=== PATIENT | female | born 1935 | race African-American/Black ===

== ENCOUNTER 2021-05-10 23:15 | Inpatient (IN) | payer MEDICARE ==
[2021-05-10] MEDS ORDERED: hydrALAZINE 20 MG/ML VIAL SLOW IVP PRN (23:28)
[2021-05-10] MEDS ORDERED: traMADol HCl 50 MG TAB PO PRN (23:28)
[2021-05-10] MEDS ORDERED: Morphine 2 MG/ML VIAL SLOW IVP PRN (23:28)
[2021-05-10] MEDS ORDERED: HumaLOG 300 UNITS/3 ML VIAL SC PRN (23:31)
[2021-05-10] MEDS ORDERED: Dextrose 50% Abboject 50 ML SYRINGE SLOW IVP PRN (23:31)
[2021-05-10] MEDS ORDERED: Ondansetron PF 4 MG/2 ML Vial IVP PRN (23:31)
[2021-05-10] MEDS ORDERED: Dextrose 5% in Water 1,000 ML IV PRN (23:31)
[2021-05-10] MEDS ORDERED: Sodium Chloride 0.9% 1,000 ML IV SCH (23:45)
[2021-05-11] MEDS: traMADol HCl 50 MG TAB PO SCH ×4 (00:06→17:57)
[2021-05-11] MEDS: Acetaminophen 325 MG TAB PO SCH ×4 (00:12→17:57)
[2021-05-11 07:06] LABS: INR-International Normal Ratio 1.1; Prothrombin Time 14.3 sec (12.0-14.7)
[2021-05-11 07:07] LABS: PTT 40.9 sec (22.9-36.1)
[2021-05-11 07:16] LABS: Anion Gap 10 mmol/L (10-20); BUN (Urea Nitrogen) 13 mg/dL (9.8-20.1); CK (CPK) 308 U/L (29-168); Calc. Creatinine Clearance 39 mL/min (70-130); Calcium 9.1 mg/dL (7.8-10.44); Carbon Dioxide 29 mmol/L (23-31); Chloride 105 mmol/L (98-107); Glucose 99 mg/dL (83-110); Hemoglobin 11.9 g/dL (12.0-16.0); Mean Corpuscular HGB CONC 34.6 g/dL (32.0-36.0); Mean Corpuscular Hemoglobin 36.9 pg (27.0-31.0); Mean Platelet Volume 5.9 fL (7.4-10.4); Phosphorus 3.7 mg/dL (2.3-4.7); Platelet Count 245 thou/uL (130-400); Potassium 3.9 mmol/L (3.5-5.1); RBC Distribution Width 10.5 % (11.5-14.5); Red Blood Cell (RBC) Count 3.21 mill/uL (4.20-5.40); Sodium 140 mmol/L (136-145)
[2021-05-11] MEDS: Senokot S 8.6-50 MG TAB PO SCH ×2 (09:24→19:44)
[2021-05-11] MEDS: Amlodipine 10 MG TAB PO SCH (09:24)
[2021-05-11] MEDS: Famotidine/PF 20 mg/2ml Vial SLOW IVP SCH ×2 (09:24→19:45)
[2021-05-11 10:15] LABS: #Basophils 0.1 thou/uL (0.0-0.2); #Eosinphils 0.2 thou/uL (0.0-0.7); #Lymphocytes 1.8 thou/uL (1.20-3.40); #Monocytes 0.6 thou/uL (0.11-0.59); #Neutrophils 2.4 thou/uL (1.40-6.50); %Basophils 1.1 % (0.0-1.0); %Lymphocytes 35.7 % (21.0-51.0); %Monocytes 11.7 % (0.0-10.0); %Neutrophils 48.6 % (42.0-75.0); Eosinophils 1 % (0-10); Lymphocytes 35 % (21-51); MDiff Complete? YES; Macrocytosis SLIGHT = 6-15 cells (100X) (0-5/hpf); Monocytes 16 % (0-10); Neutrophil 47 % (42-75); Platelet Morphology Comment Appears Adequate
[2021-05-11 11:33] LABS: Troponin I 0.018 ng/mL (< 0.028)
[2021-05-11] MEDS ORDERED: Aspirin 81 mg Enteric Coated Tablet PO SCH (15:30)
[2021-05-11] MEDS: Sodium Chloride 0.9% 1,000 ML IV SCH (18:20)
[2021-05-11] MEDS: Lisinopril 5 MG TAB PO SCH (19:44)
[2021-05-12] MEDS: traMADol HCl 50 MG TAB PO SCH ×4 (00:01→18:14)
[2021-05-12] MEDS: Sodium Chloride 0.9% 1,000 ML IV SCH ×2 (03:03→14:19)
[2021-05-12] MEDS: Acetaminophen 325 MG TAB PO SCH ×4 (05:59→18:14)
[2021-05-12] MEDS ORDERED: ceFAZolin Sodium/D5W 2 GM in Premix Bag 1 BAG IVPB SCH (08:00)
[2021-05-12] MEDS: Amlodipine 10 MG TAB PO SCH (10:16)
[2021-05-12] MEDS: Lisinopril 5 MG TAB PO SCH ×2 (10:16→21:06)
[2021-05-12] MEDS: Senokot S 8.6-50 MG TAB PO SCH ×2 (13:05→21:06)
[2021-05-12] MEDS: Aspirin 81 mg Enteric Coated Tablet PO SCH (13:05)
[2021-05-12 13:39] LABS: SARS-CoV-2 NAA Rapid Test Not Detected (NotDetected)
[2021-05-12] MEDS ORDERED: ceFAZolin 2 GM/DEX 5% 100 ML BAG ONE (15:07)
[2021-05-12] MEDS ORDERED: Morphine 2 MG/ML VIAL ONE (15:22)
[2021-05-12] MEDS ORDERED: Lidocaine 2% Jelly 5 ML TUBE ONE (15:40)
[2021-05-12] MEDS ORDERED: Fentanyl 100 MCG/2 ML VIAL ONE (15:40)
[2021-05-12] MEDS ORDERED: Phenylephrine 10 MG/ML VIAL ONE (15:51)
[2021-05-12] MEDS ORDERED: Rocuronium Bromide 10 MG/ML (10ML VIAL) ONE (15:58)
[2021-05-12] MEDS ORDERED: PHENYLEPHRINE-NS 100 MCG/ML 10 ML SYRINGE ONE (15:58)
[2021-05-12] MEDS ORDERED: Lidocaine 1% PF 5 ML VIAL ONE (15:58)
[2021-05-12] MEDS ORDERED: Dexamethasone 20 MG/5 ML VIAL ONE (15:58)
[2021-05-12] MEDS ORDERED: Ondansetron PF 4 MG/2 ML Vial ONE (15:58)
[2021-05-12] MEDS ORDERED: PROPOFOL 200 MG/20 ML VIAL ONE (15:58)
[2021-05-12] MEDS ORDERED: SUGAMMADEX SODIUM 200 MG/2 ML VIAL ONE (17:05)
[2021-05-12] MEDS ORDERED: Ondansetron HCl/PF 4 MG/2 ML Vial IVP PRN (17:15)
[2021-05-12] MEDS ORDERED: PACU-Morphine 4MG/ML VIAL SLOW IVP PRN (17:15)
[2021-05-12] MEDS ORDERED: Promethazine HCl 25 MG/ML VIAL IM PRN (17:15)
[2021-05-12] MEDS ORDERED: Promethazine HCl 25 MG/ML VIAL IVPB PRN (17:15)
[2021-05-12] MEDS: Famotidine/PF 20 mg/2ml Vial SLOW IVP SCH (21:10)
[2021-05-13] MEDS: ceFAZolin Sodium/D5W 2 GM in Premix Bag 1 BAG IVPB SCH ×2 (00:45→08:32)
[2021-05-13] MEDS: traMADol HCl 50 MG TAB PO SCH ×4 (01:01→18:34)
[2021-05-13] MEDS: Acetaminophen 325 MG TAB PO SCH ×4 (01:02→18:29)
[2021-05-13 08:30] LABS: #Lymphocytes 1.5 thou/uL (1.20-3.40); #Monocytes 0.8 thou/uL (0.11-0.59); #Neutrophils 6.6 thou/uL (1.40-6.50); %Basophils 0.1 % (0.0-1.0); %Eosinophils 0.1 % (0.0-10.0); %Lymphocytes 17.1 % (21.0-51.0); %Monocytes 9.1 % (0.0-10.0); %Neutrophils 73.6 % (42.0-75.0); Hemoglobin 12.8 g/dL (12.0-16.0); Mean Corpuscular HGB CONC 32.8 g/dL (32.0-36.0); Mean Corpuscular Hemoglobin 34.5 pg (27.0-31.0); Mean Platelet Volume 5.8 fL (7.4-10.4); Platelet Count 309 thou/uL (130-400); RBC Distribution Width 10.4 % (11.5-14.5); Red Blood Cell (RBC) Count 3.71 mill/uL (4.20-5.40)
[2021-05-13] MEDS: Amlodipine 10 MG TAB PO SCH (08:30)
[2021-05-13] MEDS: Lisinopril 5 MG TAB PO SCH ×2 (08:30→21:50)
[2021-05-13] MEDS: Aspirin 81 mg Enteric Coated Tablet PO SCH (08:31)
[2021-05-13] MEDS: Senokot S 8.6-50 MG TAB PO SCH ×2 (08:32→21:47)
[2021-05-13 08:41] LABS: Troponin I 0.025 ng/mL (< 0.028)
[2021-05-13 08:42] LABS: Anion Gap 13 mmol/L (10-20); BUN (Urea Nitrogen) 12 mg/dL (9.8-20.1); CK (CPK) 448 U/L (29-168); Calc. Creatinine Clearance 39 mL/min (70-130); Calcium 9.5 mg/dL (7.8-10.44); Carbon Dioxide 27 mmol/L (23-31); Chloride 99 mmol/L (98-107); Glucose 106 mg/dL (83-110); Magnesium 1.7 mg/dL (1.6-2.6); Phosphorus 3.5 mg/dL (2.3-4.7); Potassium 3.8 mmol/L (3.5-5.1); Sodium 135 mmol/L (136-145)
[2021-05-13] MEDS ORDERED: Magnesium 2 GM/50 ML 2 GM in Premix Bag 1 BAG IVPB SCH (09:30)
[2021-05-13] MEDS ORDERED: Lactated Ringer's 250 ML IV SCH (15:45)
[2021-05-13] MEDS: Famotidine/PF 20 mg/2ml Vial SLOW IVP SCH (21:48)
[2021-05-13] MEDS ORDERED: Famotidine 20 MG TAB PO SCH (22:00)
[2021-05-14] MEDS: Acetaminophen 325 MG TAB PO SCH ×4 (00:16→18:16)
[2021-05-14] MEDS: traMADol HCl 50 MG TAB PO SCH ×4 (00:16→18:16)
[2021-05-14 07:09] LABS: Anion Gap 14 mmol/L (10-20); BUN (Urea Nitrogen) 23 mg/dL (9.8-20.1); Calc. Creatinine Clearance 35 mL/min (70-130); Calcium 8.8 mg/dL (7.8-10.44); Carbon Dioxide 27 mmol/L (23-31); Chloride 100 mmol/L (98-107); Glucose 97 mg/dL (83-110); Phosphorus 2.9 mg/dL (2.3-4.7); Sodium 137 mmol/L (136-145)
[2021-05-14] MEDS: Senokot S 8.6-50 MG TAB PO SCH ×2 (08:31→20:11)
[2021-05-14] MEDS: Aspirin 81 mg Enteric Coated Tablet PO SCH (08:31)
[2021-05-14] MEDS: Amlodipine 10 MG TAB PO SCH (08:32)
[2021-05-14] MEDS: Lisinopril 5 MG TAB PO SCH ×2 (08:32→20:10)
[2021-05-14] MEDS ORDERED: Famotidine 20 MG TAB PO SCH (21:00)
[2021-05-14] MEDS ORDERED: FLU VACC QS2021-22(65YR UP)/PF 240 MCG/0.7 ML SYRINGE IM ONE (21:00)
[2021-05-15] MEDS: Acetaminophen 325 MG TAB PO SCH ×4 (00:12→17:27)
[2021-05-15] MEDS: traMADol HCl 50 MG TAB PO SCH ×4 (00:13→17:27)
[2021-05-15 06:40] LABS: #Eosinphils 0.2 thou/uL (0.0-0.7); #Lymphocytes 1.8 thou/uL (1.20-3.40); #Monocytes 0.7 thou/uL (0.11-0.59); #Neutrophils 5.4 thou/uL (1.40-6.50); %Basophils 0.2 % (0.0-1.0); %Eosinophils 2.1 % (0.0-10.0); %Monocytes 8.4 % (0.0-10.0); %Neutrophils 67.4 % (42.0-75.0); Hemoglobin 10.6 g/dL (12.0-16.0); Mean Corpuscular HGB CONC 33.5 g/dL (32.0-36.0); Mean Corpuscular Hemoglobin 36.2 pg (27.0-31.0); Platelet Count 260 thou/uL (130-400); RBC Distribution Width 10.6 % (11.5-14.5); Red Blood Cell (RBC) Count 2.92 mill/uL (4.20-5.40)
[2021-05-15 06:58] LABS: Anion Gap 13 mmol/L (10-20); BUN (Urea Nitrogen) 31 mg/dL (9.8-20.1); Calc. Creatinine Clearance 36 mL/min (70-130); Calcium 8.6 mg/dL (7.8-10.44); Carbon Dioxide 28 mmol/L (23-31); Chloride 101 mmol/L (98-107); Glucose 93 mg/dL (83-110); Magnesium 2.1 mg/dL (1.6-2.6); Phosphorus 2.6 mg/dL (2.3-4.7); Potassium 3.8 mmol/L (3.5-5.1); Sodium 138 mmol/L (136-145)
[2021-05-15] MEDS: Senokot S 8.6-50 MG TAB PO SCH ×2 (08:19→20:39)
[2021-05-15] MEDS: Aspirin 81 mg Enteric Coated Tablet PO SCH ×2 (08:19→20:38)
[2021-05-15] MEDS: Lisinopril 5 MG TAB PO SCH ×2 (08:19→20:38)
[2021-05-15] MEDS: Amlodipine 10 MG TAB PO SCH (08:20)
[2021-05-16] MEDS: Acetaminophen 325 MG TAB PO SCH ×4 (00:12→18:28)
[2021-05-16] MEDS: traMADol HCl 50 MG TAB PO SCH ×4 (00:12→18:28)
[2021-05-16] MEDS: Senokot S 8.6-50 MG TAB PO SCH ×2 (10:02→19:34)
[2021-05-16] MEDS: Amlodipine 10 MG TAB PO SCH (10:02)
[2021-05-16] MEDS: Lisinopril 5 MG TAB PO SCH ×2 (10:02→19:34)
[2021-05-16] MEDS: Aspirin 81 mg Enteric Coated Tablet PO SCH ×2 (10:02→19:34)
[2021-05-17] MEDS: traMADol HCl 50 MG TAB PO SCH ×4 (00:09→18:56)
[2021-05-17] MEDS: Acetaminophen 325 MG TAB PO SCH ×4 (00:10→18:56)
[2021-05-17] MEDS: Aspirin 81 mg Enteric Coated Tablet PO SCH ×2 (10:05→20:20)
[2021-05-17] MEDS: Polyethylene Glycol 3350 17 GM Packet PO SCH (10:05)
[2021-05-17] MEDS: Amlodipine 10 MG TAB PO SCH (10:07)
[2021-05-17] MEDS: Lisinopril 5 MG TAB PO SCH ×2 (10:08→20:20)
[2021-05-17] MEDS: Ezetimibe 10 MG TAB PO SCH (10:09)
[2021-05-17] MEDS: Senokot S 8.6-50 MG TAB PO SCH ×2 (10:10→20:20)
[2021-05-18] MEDS: Acetaminophen 325 MG TAB PO SCH ×5 (00:02→17:59)
[2021-05-18] MEDS: traMADol HCl 50 MG TAB PO SCH ×4 (00:03→18:00)
[2021-05-18] MEDS: Senokot S 8.6-50 MG TAB PO SCH ×2 (08:45→22:05)
[2021-05-18] MEDS: Amlodipine 10 MG TAB PO SCH (08:45)
[2021-05-18] MEDS: Lisinopril 5 MG TAB PO SCH ×2 (08:45→22:05)
[2021-05-18] MEDS: Ezetimibe 10 MG TAB PO SCH (08:45)
[2021-05-18] MEDS: Polyethylene Glycol 3350 17 GM Packet PO SCH (08:45)
[2021-05-18] MEDS: Aspirin 81 mg Enteric Coated Tablet PO SCH ×2 (08:46→22:06)
[2021-05-19] MEDS: traMADol HCl 50 MG TAB PO SCH ×5 (00:27→18:46)
[2021-05-19] MEDS: Acetaminophen 325 MG TAB PO SCH ×4 (00:27→18:47)
[2021-05-19] MEDS: Ezetimibe 10 MG TAB PO SCH (09:04)
[2021-05-19] MEDS: Aspirin 81 mg Enteric Coated Tablet PO SCH ×2 (09:04→21:03)
[2021-05-19] MEDS: Amlodipine 10 MG TAB PO SCH (09:04)
[2021-05-19] MEDS: Senokot S 8.6-50 MG TAB PO SCH ×2 (09:05→21:03)
[2021-05-19] MEDS: Polyethylene Glycol 3350 17 GM Packet PO SCH (09:08)
[2021-05-19] MEDS: Lisinopril 5 MG TAB PO SCH ×2 (09:08→21:02)
[2021-05-19 23:03] LABS: SARS-CoV-2 PCR by NAA Not Detected (NotDetected)
[2021-05-20] MEDS: traMADol HCl 50 MG TAB PO SCH ×5 (00:06→23:38)
[2021-05-20] MEDS: Acetaminophen 325 MG TAB PO SCH ×5 (06:07→23:38)
[2021-05-20] MEDS ORDERED: Bisacodyl 10 MG SUPP PR SCH (09:15)
[2021-05-20] MEDS: Lisinopril 5 MG TAB PO SCH ×2 (09:35→20:27)
[2021-05-20] MEDS: Ezetimibe 10 MG TAB PO SCH (09:35)
[2021-05-20] MEDS: Amlodipine 10 MG TAB PO SCH (09:35)
[2021-05-20] MEDS: Senokot S 8.6-50 MG TAB PO SCH ×2 (09:36→20:27)
[2021-05-20] MEDS: Aspirin 81 mg Enteric Coated Tablet PO SCH ×2 (09:36→20:27)
[2021-05-20] MEDS: Polyethylene Glycol 3350 17 GM Packet PO SCH (09:36)
[2021-05-20 18:01] LABS: #Eosinphils 0.3 thou/uL (0.0-0.7); #Lymphocytes 1.7 thou/uL (1.20-3.40); #Monocytes 0.6 thou/uL (0.11-0.59); %Basophils 0.4 % (0.0-1.0); %Eosinophils 4.4 % (0.0-10.0); %Lymphocytes 21.7 % (21.0-51.0); %Monocytes 8.3 % (0.0-10.0); %Neutrophils 65.2 % (42.0-75.0); Hemoglobin 10.9 g/dL (12.0-16.0); Mean Corpuscular HGB CONC 31.4 g/dL (32.0-36.0); Mean Corpuscular Hemoglobin 33.8 pg (27.0-31.0); Mean Platelet Volume 5.6 fL (7.4-10.4); Platelet Count 420 thou/uL (130-400); RBC Distribution Width 10.8 % (11.5-14.5); Red Blood Cell (RBC) Count 3.24 mill/uL (4.20-5.40); White Blood Cell (WBC) Count 7.6 thou/uL (4.8-10.8)
[2021-05-20 18:17] LABS: Anion Gap 12 mmol/L (10-20); BUN (Urea Nitrogen) 30 mg/dL (9.8-20.1); Calc. Creatinine Clearance 33 mL/min (70-130); Calcium 9.4 mg/dL (7.8-10.44); Carbon Dioxide 33 mmol/L (23-31); Chloride 98 mmol/L (98-107); Glucose 99 mg/dL (83-110); Magnesium 2.3 mg/dL (1.6-2.6); Phosphorus 4.1 mg/dL (2.3-4.7); Potassium 4.7 mmol/L (3.5-5.1); Sodium 138 mmol/L (136-145)
[2021-05-21] MEDS: Acetaminophen 325 MG TAB PO SCH ×3 (06:21→17:25)
[2021-05-21] MEDS: traMADol HCl 50 MG TAB PO SCH ×3 (06:22→17:25)
[2021-05-21] MEDS: Aspirin 81 mg Enteric Coated Tablet PO SCH ×2 (10:15→20:39)
[2021-05-21] MEDS: Senokot S 8.6-50 MG TAB PO SCH ×2 (10:15→20:39)
[2021-05-21] MEDS: Polyethylene Glycol 3350 17 GM Packet PO SCH (10:15)
[2021-05-21] MEDS: Lisinopril 5 MG TAB PO SCH ×2 (10:15→20:39)
[2021-05-21] MEDS: Amlodipine 10 MG TAB PO SCH (11:15)
[2021-05-21] MEDS: Ezetimibe 10 MG TAB PO SCH (11:15)
[2021-05-21] MEDS ORDERED: traMADol HCl 50 MG TAB PO PRN (13:11)
[2021-05-22] MEDS: traMADol HCl 50 MG TAB PO SCH ×4 (00:31→18:15)
[2021-05-22] MEDS: Acetaminophen 325 MG TAB PO SCH ×4 (00:31→18:16)
[2021-05-22] MEDS: Lisinopril 5 MG TAB PO SCH ×2 (09:35→19:31)
[2021-05-22] MEDS: Aspirin 81 mg Enteric Coated Tablet PO SCH ×2 (09:35→19:31)
[2021-05-22] MEDS: Senokot S 8.6-50 MG TAB PO SCH ×2 (09:36→19:31)
[2021-05-22] MEDS: Polyethylene Glycol 3350 17 GM Packet PO SCH (09:36)
[2021-05-22] MEDS: Ezetimibe 10 MG TAB PO SCH (09:36)
[2021-05-22] MEDS: Amlodipine 10 MG TAB PO SCH (09:36)
[2021-05-22 12:27] VITALS: BMI 16.9
[2021-05-23] MEDS: Acetaminophen 325 MG TAB PO SCH ×3 (00:32→12:36)
[2021-05-23] MEDS: traMADol HCl 50 MG TAB PO SCH ×3 (00:33→12:36)
[2021-05-23] MEDS: Ezetimibe 10 MG TAB PO SCH (10:40)
[2021-05-23] MEDS: Aspirin 81 mg Enteric Coated Tablet PO SCH (10:40)
[2021-05-23] MEDS: Senokot S 8.6-50 MG TAB PO SCH (10:40)
[2021-05-23] MEDS: Polyethylene Glycol 3350 17 GM Packet PO SCH (10:41)
[2021-05-23] MEDS: Amlodipine 10 MG TAB PO SCH (10:41)
[2021-05-23] MEDS: Lisinopril 5 MG TAB PO SCH (10:41)
[2021-05-23 16:41] VITALS: BP 102/66; TEMP 98.9
== END 2021-05-23 18:39 | DRG 522 ==
LOC: SURG A 23:15
PROVIDERS: ADMIT Surgery; ATTEND Surgery
PROC: 0SRS0JZ Replacement of Left Hip Joint, Femoral Surface with Synthetic Substitute, Open Approach (ICD-10-PCS; principal; 2021-05-12)
DX: S72.002A Fracture of unspecified part of neck of left femur, initial encounter for closed fracture (principal); E44.1 Mild protein-calorie malnutrition; Z68.1 Body mass index [BMI] 19.9 or less, adult; I65.21 Occlusion and stenosis of right carotid artery; I10 Essential (primary) hypertension; F03.90 Unspecified dementia, unspecified severity, without behavioral disturbance, psychotic disturbance, mood disturbance, and anxiety; I67.9 Cerebrovascular disease, unspecified; I35.0 Nonrheumatic aortic (valve) stenosis; W18.30XA Fall on same level, unspecified, initial encounter; Z20.822 Contact with and (suspected) exposure to COVID-19; E11.9 Type 2 diabetes mellitus without complications; R26.81 Unsteadiness on feet; Z88.8 Allergy status to other drugs, medicaments and biological substances
CPT/HCPCS: 36415; 36416; 71045; 72170; 80048; 82550; 83735; 84100; 84484; 85025; 85610; 85730; 86850; 86900; 86901; 93005; 93010; 93306; 93880; J1100; J1815; J2270; J2370; J2405; J2704; J3010; J3475; J7050; J7120; S0028; U0002; U0003; U0005

== ENCOUNTER 2021-09-17 15:39 | Inpatient (IN) | payer MEDICARE ==
[2021-09-17 15:59] LABS: #Eosinphils 0.1 thou/uL (0.0-0.7); #Monocytes 0.4 thou/uL (0.11-0.59); #Neutrophils 2.9 thou/uL (1.40-6.50); %Basophils 0.2 % (0.0-1.0); %Eosinophils 1.4 % (0.0-10.0); %Lymphocytes 37.4 % (21.0-51.0); %Monocytes 7.5 % (0.0-10.0); %Neutrophils 53.6 % (42.0-75.0); Hemoglobin 11.5 g/dL (12.0-16.0); Mean Corpuscular HGB CONC 33.8 g/dL (32.0-36.0); Mean Corpuscular Hemoglobin 36.5 pg (27.0-31.0); Mean Platelet Volume 5.7 fL (7.4-10.4); Platelet Count 195 thou/uL (130-400); RBC Distribution Width 10.7 % (11.5-14.5); Red Blood Cell (RBC) Count 3.15 mill/uL (4.20-5.40); White Blood Cell (WBC) Count 5.3 thou/uL (4.8-10.8)
[2021-09-17 16:05] LABS: INR-International Normal Ratio 1.1; Prothrombin Time 14.5 sec (12.0-14.7)
[2021-09-17 16:06] LABS: PTT 32.8 sec (22.9-36.1)
[2021-09-17 16:18] LABS: ALT (SGPT) 29 U/L (8-55); AST (SGOT) 36 U/L (5-34); Albumin 3.9 g/dL (3.4-4.8); Alkaline Phosphatase 44 U/L (40-110); Anion Gap 15 mmol/L (10-20); BUN (Urea Nitrogen) 38 mg/dL (9.8-20.1); Bilirubin, Total 0.6 mg/dL (0.2-1.2); CK (CPK) 391 U/L (29-168); Calc. Creatinine Clearance 0 mL/min (70-130); Calcium 9.4 mg/dL (7.8-10.44); Carbon Dioxide 25 mmol/L (23-31); Chloride 101 mmol/L (98-107); Globulin 3.8 g/dL (2.4-3.5); Glucose 105 mg/dL (83-110); Protein, Total 7.7 g/dL (5.8-8.1); Sodium 137 mmol/L (136-145)
[2021-09-17 16:21] LABS: MDiff Complete? YES; Macrocytosis SLIGHT = 6-15 cells (100X) (0-5/hpf); Platelet Morphology Comment Appears Adequate
[2021-09-17] MEDS ORDERED: Acetaminophen 325 MG TAB PO PRN (17:49)
[2021-09-17] MEDS ORDERED: hydrALAZINE 20 MG/ML VIAL SLOW IVP PRN (17:53)
[2021-09-17] MEDS ORDERED: niCARdipine 25 MG in Sodium Chloride 0.9% 250 ML 250 ML IVPB PRN (17:53)
[2021-09-17] MEDS ORDERED: Labetalol HCl 100 MG/20 ML VIAL SLOW IVP PRN (17:53)
[2021-09-17 18:36] LABS: SARS-CoV-2 NAA Rapid Test Not Detected (NotDetected)
[2021-09-17] MEDS: Communication Order-Pharmacy FS SCH (20:31)
[2021-09-18 16:51] LABS: Cardiac Risk 4.7 (Less than 4.5)
[2021-09-18] MEDS: Communication Order-Pharmacy FS SCH (18:09)
[2021-09-18] MEDS ORDERED: OLANZapine 10 MG VIAL IM SCH (23:45)
[2021-09-19] MEDS: Aspirin 325 mg Enteric Coated Tablet PO SCH ×2 (09:00)
[2021-09-19 09:37] LABS: Hemoglobin 12.8 g/dL (12.0-16.0); Mean Corpuscular HGB CONC 32.3 g/dL (32.0-36.0); Mean Corpuscular Hemoglobin 34.9 pg (27.0-31.0); Platelet Count 186 thou/uL (130-400); RBC Distribution Width 10.6 % (11.5-14.5); Red Blood Cell (RBC) Count 3.66 mill/uL (4.20-5.40); White Blood Cell (WBC) Count 6.4 thou/uL (4.8-10.8)
[2021-09-19 09:59] LABS: ALT (SGPT) 22 U/L (8-55); AST (SGOT) 31 U/L (5-34); Albumin 3.9 g/dL (3.4-4.8); Alkaline Phosphatase 48 U/L (40-110); Anion Gap 17 mmol/L (10-20); BUN (Urea Nitrogen) 17 mg/dL (9.8-20.1); Bilirubin, Total 0.5 mg/dL (0.2-1.2); Calc. Creatinine Clearance 37 mL/min (70-130); Calcium 9.8 mg/dL (7.8-10.44); Carbon Dioxide 21 mmol/L (23-31); Chloride 103 mmol/L (98-107); Glucose 91 mg/dL (83-110); Potassium 3.9 mmol/L (3.5-5.1); Protein, Total 7.9 g/dL (5.8-8.1); Sodium 137 mmol/L (136-145)
[2021-09-19 11:27] LABS: Band 1 % (5-11); Eosinophils 1 % (0-10); Lymphocytes 52 % (21-51); MDiff Complete? YES; Monocytes 9 % (0-10); Neutrophil 37 % (42-75); Platelet Morphology Comment Appears Adequate; RBC Morphology Normal
[2021-09-19] MEDS: Lisinopril 5 MG TAB PO SCH (19:35)
[2021-09-19] MEDS: Divalproex Sodium 125 mg Sprinkle Capsule PO SCH (19:36)
[2021-09-20] MEDS ORDERED: FLU VACC QS2021-22(65YR UP)/PF 240 MCG/0.7 ML SYRINGE IM ONE (09:00)
[2021-09-20] MEDS: Aspirin 325 mg Enteric Coated Tablet PO SCH (09:30)
[2021-09-20] MEDS: Divalproex Sodium 125 mg Sprinkle Capsule PO SCH ×2 (09:30→21:10)
[2021-09-20] MEDS: Amlodipine 10 MG TAB PO SCH (09:30)
[2021-09-20] MEDS: Lisinopril 5 MG TAB PO SCH ×2 (09:30→21:10)
[2021-09-20] MEDS: Ezetimibe 10 MG TAB PO SCH (09:30)
[2021-09-20] MEDS ORDERED: Sodium Chloride 0.9% 500 ML IV SCH (16:15)
[2021-09-20] MEDS: Sodium Chloride 0.9% 1,000 ML IV SCH (17:26)
[2021-09-21] MEDS: Sodium Chloride 0.9% 1,000 ML IV SCH ×2 (03:24→15:32)
[2021-09-21] MEDS ORDERED: Magnevist 469MG/ML 20 ML VIAL ONE (10:54)
[2021-09-21] MEDS: Amlodipine 10 MG TAB PO SCH (12:57)
[2021-09-21] MEDS: Aspirin 325 mg Enteric Coated Tablet PO SCH (12:58)
[2021-09-21] MEDS: Divalproex Sodium 125 mg Sprinkle Capsule PO SCH (12:58)
[2021-09-21] MEDS: Lisinopril 5 MG TAB PO SCH ×2 (12:58→21:19)
[2021-09-21] MEDS: Ezetimibe 10 MG TAB PO SCH (12:58)
[2021-09-21] MEDS ORDERED: VALPROATE SODIUM IVPB SCH (21:00)
[2021-09-21] MEDS ORDERED: SODIUM CHLORIDE 0.9% IVPB SCH (21:00)
[2021-09-22] MEDS ORDERED: Acetaminophen 650 MG Suppository PR PRN (00:12)
[2021-09-22] MEDS ORDERED: Piperacillin/Tazobactam 3.375 GM in Sodium Chloride 0.9% 100 ML IVPB SCH ×2 (01:00→01:30)
[2021-09-22] MEDS: Sodium Chloride 0.9% 1,000 ML IV SCH ×2 (01:25→13:19)
[2021-09-22] MEDS ORDERED: Vancomycin 1 GM in Premix Bag 1 BAG IVPB SCH ×2 (02:00→02:15)
[2021-09-22] MEDS ORDERED: VANCOMYCIN 1.25 GM/250 ML BAG 1.25 GM in Premix Bag 1 BAG IVPB SCH (02:00)
[2021-09-22 05:43] LABS: #Eosinphils 0.2 thou/uL (0.0-0.7); #Lymphocytes 1.3 thou/uL (1.20-3.40); #Monocytes 0.6 thou/uL (0.11-0.59); #Neutrophils 6.2 thou/uL (1.40-6.50); %Basophils 0.5 % (0.0-1.0); %Eosinophils 2.8 % (0.0-10.0); %Lymphocytes 15.4 % (21.0-51.0); %Monocytes 7.1 % (0.0-10.0); %Neutrophils 74.2 % (42.0-75.0); Hemoglobin 10.8 g/dL (12.0-16.0); Mean Corpuscular Hemoglobin 36.7 pg (27.0-31.0); Mean Platelet Volume 6.1 fL (7.4-10.4); Platelet Count 162 thou/uL (130-400); RBC Distribution Width 10.6 % (11.5-14.5); Red Blood Cell (RBC) Count 2.95 mill/uL (4.20-5.40); White Blood Cell (WBC) Count 8.4 thou/uL (4.8-10.8)
[2021-09-22] MEDS: Piperacillin/Tazobactam 3.375 GM in Sodium Chloride 0.9% 100 ML IVPB SCH ×3 (06:03→21:42)
[2021-09-22 06:07] LABS: ALT (SGPT) 22 U/L (8-55); AST (SGOT) 25 U/L (5-34); Albumin 3.1 g/dL (3.4-4.8); Alkaline Phosphatase 39 U/L (40-110); Anion Gap 4 mmol/L (10-20); BUN (Urea Nitrogen) 19 mg/dL (9.8-20.1); Calc. Creatinine Clearance 41 mL/min (70-130); Calcium 8.5 mg/dL (7.8-10.44); Carbon Dioxide 31 mmol/L (23-31); Chloride 108 mmol/L (98-107); Globulin 3.4 g/dL (2.4-3.5); Glucose 92 mg/dL (83-110); Protein, Total 6.5 g/dL (5.8-8.1); Sodium 139 mmol/L (136-145)
[2021-09-22] MEDS: Amlodipine 10 MG TAB PO SCH (09:42)
[2021-09-22] MEDS: Lisinopril 5 MG TAB PO SCH ×2 (09:44→21:42)
[2021-09-22] MEDS: Ezetimibe 10 MG TAB PO SCH (09:44)
[2021-09-22] MEDS: Aspirin 325 mg Enteric Coated Tablet PO SCH (09:44)
[2021-09-22 13:19] LABS: Bilirubin Negative (Negative); Blood, Urine Negative (Negative); Clarity Clear (Clear); Glucose, Urine (Dipstick) Normal (Negative); Ketone, Urine 10 mg/dL (Negative); Leukocyte 500 Leu/uL (Negative); Nitrite Negative (Negative); Protein, Urine (Dipstick) Negative (Neg-Trace); RBC/HPF 0-3 HPF (0-3); Specific Gravity, Urine 1.024 (1.002-1.036); Urobilinogen Normal mg/dL (Less than 2)
[2021-09-22 13:20] LABS: Bacteria/HPF 1+ HPF (None Seen)
[2021-09-22 13:21] LABS: Urine Culture Reflex No No
[2021-09-23] MEDS: Vancomycin HCl 750 MG in Sodium Chloride 0.9% 250 ML 250 ML IVPB SCH (02:51)
[2021-09-23] MEDS: Sodium Chloride 0.9% 1,000 ML IV SCH ×3 (02:51→21:12)
[2021-09-23] MEDS: Piperacillin/Tazobactam 3.375 GM in Sodium Chloride 0.9% 100 ML IVPB SCH ×3 (06:28→21:06)
[2021-09-23] MEDS: Ezetimibe 10 MG TAB PO SCH (09:35)
[2021-09-23] MEDS: Amlodipine 10 MG TAB PO SCH (09:35)
[2021-09-23] MEDS: Aspirin 325 mg Enteric Coated Tablet PO SCH (09:36)
[2021-09-23] MEDS: Lisinopril 5 MG TAB PO SCH ×2 (09:36→21:06)
[2021-09-24 01:50] LABS: Vancomycin, Trough 4.2 ug/mL
[2021-09-24] MEDS: Vancomycin HCl 750 MG in Sodium Chloride 0.9% 250 ML 250 ML IVPB SCH ×2 (03:08→14:04)
[2021-09-24] MEDS: Piperacillin/Tazobactam 3.375 GM in Sodium Chloride 0.9% 100 ML IVPB SCH ×3 (05:32→22:15)
[2021-09-24] MEDS: Ezetimibe 10 MG TAB PO SCH (08:02)
[2021-09-24] MEDS: Aspirin 325 mg Enteric Coated Tablet PO SCH (08:02)
[2021-09-24] MEDS: Lisinopril 5 MG TAB PO SCH ×2 (08:02→22:16)
[2021-09-24] MEDS: Amlodipine 10 MG TAB PO SCH (08:02)
[2021-09-24] MEDS: Sodium Chloride 0.9% 1,000 ML IV SCH ×2 (08:05→22:16)
[2021-09-24 22:35] LABS: SARS-CoV-2 PCR by NAA Not Detected (NotDetected)
[2021-09-25] MEDS: Vancomycin HCl 750 MG in Sodium Chloride 0.9% 250 ML 250 ML IVPB SCH (03:15)
[2021-09-25] MEDS: Piperacillin/Tazobactam 3.375 GM in Sodium Chloride 0.9% 100 ML IVPB SCH (06:35)
[2021-09-25] MEDS: Amlodipine 10 MG TAB PO SCH (09:40)
[2021-09-25] MEDS: Lisinopril 5 MG TAB PO SCH ×2 (09:40→21:34)
[2021-09-25] MEDS: Aspirin 325 mg Enteric Coated Tablet PO SCH (09:40)
[2021-09-25] MEDS: Ezetimibe 10 MG TAB PO SCH (09:40)
[2021-09-25] MEDS: Sodium Chloride 0.9% 1,000 ML IV SCH ×2 (09:43→21:17)
[2021-09-26] MEDS: Sodium Chloride 0.9% 1,000 ML IV SCH ×3 (02:07→19:11)
[2021-09-26 05:25] LABS: #Eosinphils 0.2 thou/uL (0.0-0.7); #Lymphocytes 1.3 thou/uL (1.20-3.40); #Monocytes 0.3 thou/uL (0.11-0.59); #Neutrophils 1.8 thou/uL (1.40-6.50); %Basophils 0.5 % (0.0-1.0); %Eosinophils 6.5 % (0.0-10.0); %Lymphocytes 36.1 % (21.0-51.0); %Monocytes 7.2 % (0.0-10.0); %Neutrophils 49.8 % (42.0-75.0); Hemoglobin 11.1 g/dL (12.0-16.0); Mean Corpuscular HGB CONC 32.7 g/dL (32.0-36.0); Mean Corpuscular Hemoglobin 36.7 pg (27.0-31.0); Mean Platelet Volume 5.9 fL (7.4-10.4); Platelet Count 233 thou/uL (130-400); RBC Distribution Width 10.6 % (11.5-14.5); Red Blood Cell (RBC) Count 3.02 mill/uL (4.20-5.40); White Blood Cell (WBC) Count 3.7 thou/uL (4.8-10.8)
[2021-09-26 05:42] LABS: Anion Gap 15 mmol/L (10-20); BUN (Urea Nitrogen) 13 mg/dL (9.8-20.1); Calc. Creatinine Clearance 56 mL/min (70-130); Carbon Dioxide 23 mmol/L (23-31); Chloride 106 mmol/L (98-107); Glucose 118 mg/dL (83-110); Potassium 3.8 mmol/L (3.5-5.1); Sodium 140 mmol/L (136-145)
[2021-09-26] MEDS: Lisinopril 5 MG TAB PO SCH ×2 (08:06→22:13)
[2021-09-26] MEDS: Ezetimibe 10 MG TAB PO SCH (08:06)
[2021-09-26] MEDS: Amlodipine 10 MG TAB PO SCH (08:06)
[2021-09-26] MEDS: Aspirin 325 mg Enteric Coated Tablet PO SCH (08:06)
[2021-09-27] MEDS: Aspirin 325 mg Enteric Coated Tablet PO SCH (09:59)
[2021-09-27] MEDS: Ezetimibe 10 MG TAB PO SCH (09:59)
[2021-09-27] MEDS: Sodium Chloride 0.9% 1,000 ML IV SCH (09:59)
[2021-09-27] MEDS: Lisinopril 5 MG TAB PO SCH ×2 (10:03→21:41)
[2021-09-27] MEDS: Amlodipine 10 MG TAB PO SCH (10:03)
[2021-09-28] MEDS: Sodium Chloride 0.9% 1,000 ML IV SCH ×2 (06:04→09:05)
[2021-09-28] MEDS: Amlodipine 10 MG TAB PO SCH (09:04)
[2021-09-28] MEDS: Aspirin 325 mg Enteric Coated Tablet PO SCH (09:05)
[2021-09-28] MEDS: Lisinopril 5 MG TAB PO SCH ×2 (09:05→21:55)
[2021-09-28] MEDS: Ezetimibe 10 MG TAB PO SCH (09:05)
[2021-09-29] MEDS: Lisinopril 5 MG TAB PO SCH ×2 (08:38→21:23)
[2021-09-29] MEDS: Aspirin 325 mg Enteric Coated Tablet PO SCH (08:38)
[2021-09-29] MEDS: Amlodipine 10 MG TAB PO SCH (08:38)
[2021-09-29] MEDS: Ezetimibe 10 MG TAB PO SCH (08:38)
[2021-09-29] MEDS: Sodium Chloride 0.9% 1,000 ML IV SCH (08:40)
[2021-09-30] MEDS: Sodium Chloride 0.9% 1,000 ML IV SCH (03:28)
[2021-09-30] MEDS: Ezetimibe 10 MG TAB PO SCH (09:05)
[2021-09-30] MEDS: Amlodipine 10 MG TAB PO SCH (09:05)
[2021-09-30] MEDS: Lisinopril 5 MG TAB PO SCH ×2 (09:06→20:00)
[2021-09-30] MEDS: Aspirin 325 mg Enteric Coated Tablet PO SCH (09:06)
[2021-09-30 10:06] VITALS: BMI 18.7
[2021-10-01] MEDS: Ezetimibe 10 MG TAB PO SCH (09:01)
[2021-10-01] MEDS: Lisinopril 5 MG TAB PO SCH ×2 (09:01→21:53)
[2021-10-01] MEDS: Amlodipine 10 MG TAB PO SCH (09:01)
[2021-10-01] MEDS: Aspirin 325 mg Enteric Coated Tablet PO SCH (09:01)
[2021-10-01 13:28] LABS: SARS-CoV-2 PCR by NAA Not Detected (NotDetected)
[2021-10-02] MEDS: Aspirin 325 mg Enteric Coated Tablet PO SCH (08:48)
[2021-10-02] MEDS: Lisinopril 5 MG TAB PO SCH (08:48)
[2021-10-02] MEDS: Ezetimibe 10 MG TAB PO SCH (08:49)
[2021-10-02] MEDS: Amlodipine 10 MG TAB PO SCH (08:49)
[2021-10-02 12:13] VITALS: BP 118/53; TEMP 97.6
== END 2021-10-02 15:30 | DRG 62 ==
LOC: ERS 15:39 → EEVIPCON 17:25 → CCU 17:25 → NEURO 09-18 17:31
PROVIDERS: ADMIT Internal Medicine; ATTEND Family Medicine
PROC: 3E03317 Introduction of Other Thrombolytic into Peripheral Vein, Percutaneous Approach (ICD-10-PCS; principal; 2021-09-17)
PROC: 0DHA7UZ Insertion of Feeding Device into Jejunum, Via Natural or Artificial Opening (ICD-10-PCS; 2021-09-22)
PROC: 3E0H76Z Introduction of Nutritional Substance into Lower GI, Via Natural or Artificial Opening (ICD-10-PCS; 2021-09-22)
DX: I63.511 Cerebral infarction due to unspecified occlusion or stenosis of right middle cerebral artery (principal); N17.9 Acute kidney failure, unspecified; G81.94 Hemiplegia, unspecified affecting left nondominant side; Z66 Do not resuscitate; Z20.822 Contact with and (suspected) exposure to COVID-19; I65.21 Occlusion and stenosis of right carotid artery; E11.22 Type 2 diabetes mellitus with diabetic chronic kidney disease; N18.30 Chronic kidney disease, stage 3 unspecified; R29.721 NIHSS score 21; R29.810 Facial weakness; G30.9 Alzheimer's disease, unspecified; F02.80 Dementia in other diseases classified elsewhere, unspecified severity, without behavioral disturbance, psychotic disturbance, mood disturbance, and anxiety; I13.10 Hypertensive heart and chronic kidney disease without heart failure, with stage 1 through stage 4 chronic kidney disease, or unspecified chronic kidney disease; G93.89 Other specified disorders of brain; Z88.8 Allergy status to other drugs, medicaments and biological substances; Z79.899 Other long term (current) drug therapy; Z79.82 Long term (current) use of aspirin; R13.12 Dysphagia, oropharyngeal phase; Z78.1 Physical restraint status
CPT/HCPCS: 0240U; 36415; 36416; 70450; 70496; 70498; 70553; 71045; 74018; 80048; 80053; 80061; 80202; 81001; 82550; 83605; 84484; 85025; 85610; 85730; 87040; 93005; 93010; 94760; 95712; 95816; 95819; 95957; 96365; 96376; A9579; J2358; J2543; J2997; J3370; J3490; J7050; J7620; U0003; U0005